=== PATIENT | female | born 1980 | race Caucasian/White ===

== ENCOUNTER → 2019-08-14 | Outpatient (CLI) | payer OTHER ==
--- NOTE | 2019-08-14 14:17 | US ---
EXAMINATION TYPE: Transabdominal DATE OF EXAM: 08/14/2019 1:01 PM COMPARISON: NONE CLINICAL HISTORY: O46.91 first trimester bleeding. bleeding. EXAM PERFORMED: Transvaginal (TV) and Transabdominal (TA) EXAM MEASUREMENTS: GESTATIONAL AGE / DATING Physician Established: (7 weeks/6 days) EDC: 03/26/2020 Dates by LMP: (7 weeks/6 days) EDC: 03/26/2020 Dates by First Scan: No previous this is first scan Dates by Current Scan for: No IUP seen at this time MATERNAL ANATOMY Uterus: 15.6 x 5.9 x 9.0 cm Right Ovary: Obscured by bowel gas Left Ovary: Obscured by bowel gas Post CDS / Adnexa: wnl Presence of free fluid: no Presence of corpus luteal cyst: no Presence of subchorionic bleed: no GESTATION / SURVEY IUP: No IUP seen at this time Beta HcG (if available): Not available at this time IMPRESSION: No current sonographic evidence of intrauterine however the endometrium is thickened, which may represent a decidual reaction of early . Given no endometrial fluid collection ectopic or spontaneous possibilities at this time correlate with serum serial beta hCGs an d follow-up pelvic ultrasound in 7-10 days.
== END | disposition home or self-care (01) ==
LOC: RADUSWWP 12:40
PROVIDERS: ATTEND Obstetrics & Gynecology
DX: O46.91 Antepartum hemorrhage, unspecified, first trimester (principal)
CPT/HCPCS: 76801

== ENCOUNTER → 2019-08-20 | Outpatient (CLI) | payer OTHER | LOC: LABWHC1 15:38 | PROVIDERS: ATTEND Obstetrics & Gynecology | DX: O03.9 Complete or unspecified spontaneous abortion without complication (principal) | CPT/HCPCS: 36415; 84702 ==

== ENCOUNTER → 2019-08-27 | Outpatient (CLI) | payer OTHER | LOC: LABWHC1 10:05 | PROVIDERS: ATTEND Obstetrics & Gynecology | DX: O03.9 Complete or unspecified spontaneous abortion without complication (principal) | CPT/HCPCS: 36415; 84702 ==

== ENCOUNTER → 2020-12-03 | Outpatient (CLI) | payer OTHER ==
--- NOTE | 2020-12-04 10:09 | MM ---
Reason for exam: screening (asymptomatic). Baseline mammogram. Physical Findings: Nurse did not find any significant physical abnormalities on exam. MG Screening Mammo w CAD Bilateral CC and MLO view(s) were taken. There are scattered fibroglandular densities. Lateral posterior left asymmetric density does not persist on left CC [employer] view. Large focal asymmetry subareolar right breast with associated calcifications. Further magnification views recommended. Intramammary node lateral right breast. These results were verbally communicated with the patient and result sheet given to the patient on 12/03/20. ASSESSMENT: Incomplete: need additional imaging evaluation, BI-RAD 0 RECOMMENDATION: Special view mammogram of the right breast. (magnification)
--- NOTE | 2020-12-04 10:10 | MM ---
Reason for exam: additional evaluation requested from abnormal screening. Physical Findings: Breast exam preformed at baseline screening. MG Work Up Mamm w CAD RT CC with magnification, ML with magnification, and ML view(s) were taken of the right breast. There are scattered fibroglandular densities. Global asymmetry with extensive associated heterogeneous calcifications persist. These results were verbally communicated with the patient and result sheet given to the patient on 12/03/20. ASSESSMENT: Incomplete: need additional imaging evaluation, BI-RAD 0 RECOMMENDATION: Ultrasound of the right breast. (subareolar and periareaolar)
--- NOTE | 2020-12-04 10:13 | USB ---
Reason for exam: additional evaluation requested from abnormal screening. US Breast Workup Limited RT Right limited breast ultrasound including focal area of concern, retroareolar and axilla demonstrates a 0.7 x 0.3 x 0.6cm oval, cystic cluster at 3 o'clock and a 0.8 x 1.3 x 0.7cm lymph node at the axilla. Subareolar and periareolar scanned. These results were verbally communicated with the patient and result sheet given to the patient on 12/03/20. ASSESSMENT: Suspicious, BI-RAD 4 RECOMMENDATION: Stereotactic core biopsy of the right breast. (subareolar calcifications) Called Dr. Moise's office with mammographic findings and has scheduled an appointment for the patient for 01/15/21 at 10:[address] Robbins. Biopsy scheduled for 01/16/21 at 8:00. PRELIMINARY REPORT CALLED AND FAXED TO DR. ROBBINS ON 12/04/20.
== END | disposition home or self-care (01) ==
LOC: RADMAMWWP 10:04
PROVIDERS: ATTEND Family Medicine
DX: Z12.31 Encounter for screening mammogram for malignant neoplasm of breast (principal); R92.8 Other abnormal and inconclusive findings on diagnostic imaging of breast
CPT/HCPCS: 77065; 77067

== ENCOUNTER → 2021-02-06 | Outpatient (CLI) | payer OTHER ==
[2021-02-06 15:05] VITALS: BP 142/103; PULSE 76; RESP 18; TEMP 98.5
--- NOTE | 2021-02-06 15:14 | P.GSHP ---
History of Present Illness H&P Date: 02/06/21 Chief Complaint: abnormal right breast mammogram Paige is a 41 year old white female seen in consultation for Dr. Moise regarding a right breast mammographic abnormality. She had a baseline mammogram done on 12-03-20, that showed an area of a focal asymmetry in the right breast with calcifications for which additional views were recommended. Additional views of the right breast revealed global asymmetry with extensive heterogeneous calcifications present for which an ultrasound was recommended. The ultrasound revealed a 0.8 x 1.3 cm lymph node in the axilla this was felt to be suspicious BIRADS 4 and stereotactic core biopsy of the right breast subareolar ca lcifications were recommended. Patient did not feel any lumps masses or nodules of concern in her breast. She is not complaining of any nipple discharge or skin changes. She is has not had any recent trauma or infection in the breast. She's never had any surgery in the breast. Caffeine: energy drink/day nicotine: none chocolate: occasional Family history: Negative Hormonal History: menarche: 13 , M1, breast fed: yes, age at first : 24 periods regular; LMP: 1 month ago BCP: < 1 year hormone: none Surgical History: gallbladder Medical history: none Social history: Nicotine: Negative Alcohol: Occasional Drugs: Negative - Constitutional Constitutional: Denies chills, Denies fever - EENT Eyes: denies blurred vision, denies pain Ears: deny: decreased hearing, tinnitus Ears, nose, mouth and throat: Denies headache, Denies sore throat - Breasts Breasts: bilateral: as per HPI - Cardiovascular Cardiovascular: Denies chest pain, Denies shortness of breath - Respiratory Respiratory: Denies cough, Denies 7 - Gastrointestinal Gastrointestinal: Denies abdominal pain, Denies diarrhea, Denies nausea, Denies vomiting - Genitourinary (Female) Genitourinary: Denies dysuria, Denies hematuria - Menstruation Menstruation: Reports period normal - Musculoskeletal Musculoskeletal: Denies myalgias - Integumentary Integumentary: Denies pruritus, Denies rash - Neurological Neurological: Denies numbness, Denies weakness - Psychiatric Psychiatric: Reports anxiety, Denies depression - Endocrine Endocrine: Denies fatigue, Denies weight change - Hematologic/Lymphatic Comment: none - Allergic/Immunologic Allergic/Immunologic: Reports as per HPI Medications and Allergies Home Medications Medication Instructions Recorded Confirmed Type Escitalopram [Lexapro] 10 mg PO DAILY 02/03/21 02/03/21 History Allergies Allergy/AdvReac Type Severity Reaction Status Date / Time No Known Allergies Allergy Verified 02/03/21 15:17 Surgical - Exam BMI 47.3 - General no distress - Eyes normal ocular movement - ENT normal pinna, normal mucosa - Neck no masses, trachea midline - Respiratory normal expansion, normal respiratory effort - Cardiovascular Rhythm: regular Heart Sounds: normal: S1, S2 - Abdomen Abdomen: soft - Integumentary normal turgor - Neurologic no disoriented, no combative - Musculoskeletal normal gait, normal posture - Psychiatric oriented to time, oriented to person, oriented to place, speech is normal, memory intact Breast Exam: BRA: 42F inspection: Bilateral grade 3 ptosis palpation: Right breast: Multiple positional exam fibrocystic changes no dominant masses or nodules of concern, particularly attention in the area of radiographic abnormality does not show any palpable mass or abnormality Right axilla: No axillary adenopathy of concern Left breast: Multi-positional exam fibrocystic changes, no dominant masses or nodules of concern Left axilla: No adenopathy of concern Results Mammogram independently reviewed with Dr. Amador Assessment and Plan Assessment: Impression: 1. Baseline mammogram revealing area of concern in the right breast 2. Fibrocystic breast changes 3. Macromastia 4. Back pain associated with size of breast 5. Shoulder notching Plan: 1. Stereotactic core biopsy right breast further recommendation to follow Cc: Erin Chanel
== END ==
LOC: WWCWWP 14:55
PROVIDERS: ATTEND Surgery
DX: N60.12 Diffuse cystic mastopathy of left breast (principal); N60.11 Diffuse cystic mastopathy of right breast; N62 Hypertrophy of breast; M54.9 Dorsalgia, unspecified; M89.8X1 Other specified disorders of bone, shoulder

== ENCOUNTER → 2021-02-12 | Day surgery (SDC) | payer OTHER ==
[2021-02-12 07:09] VITALS: RESP 16
[2021-02-12 09:35] VITALS: BP 113/73; PULSE 73; TEMP 98.1
--- NOTE | 2021-02-12 11:40 | P.PCN ---
Date of Procedure: 02/12/21 Preoperative Diagnosis: Mammographic abnormality right breast/Subareolar area Postoperative Diagnosis: Same Procedure(s) Performed: Stereotactic core biopsy right breast 2 sites Anesthesia: local Surgeon: Chelsi Robbins Pathology: other (Breast tissue 2 sites) Condition: stable Disposition: same day Indications for Procedure: Mammographic abnormality microcalcifications in subareolar region Operative Findings: Microcalcifications noted in both biopsy specimens Description of Procedure: The patient is a 41-year-old white female who was noted to have a radiographic abnormality in her right breast in the subareolar region. She was recommended to undergo a sterile tactic core biopsy. She was brought to the stereotactic core biopsy room and positioned on the lo-rad table. A elementary school reading teacher film was obtained. The area of concern was identified. A medial to lateral approach was utilized. The area of concern was targeted. Betadine was used to anesthetize the area of concern. 20 mL of 1% lidocaine was used to anesthetize the area of con cern. Needle was driven to the correct coordinates. Post-fire film was obtained. The needle was noted to be in the correct location. Multiple core biopsies were obtained, 12. Then using a 19-gauge vacuum-assisted core rotating biopsy needle. Radiograph of the specimen did reveal microcalcifications in the specimen. A secure ese top hat clip was placed. This was in the subareolar region. A second area was then targeted. This was slightly medial to the first area. A elementary school reading teacher film was performed. The lesion was identified. The lesion was targeted. A 9-gauge vacuum-assisted core Rotating biopsy needle was utilized. A prefire film identified the needle in the correct location. The needle was fired. A postoperative film revealed the needle to be in the correct location. 12 biopsy specimens were obtained. Radiograph of the specimen trivial calcification the specimens. A tri marked bowtie marker was placed. The patient tolerated the procedure in stable condition. The specimens were sent to pathology. The patient will follow with Dr. Cordoba in 1 week.
--- NOTE | 2021-02-16 09:27 | MM ---
EXAMINATION TYPE: MG stereo VAD BX RT DATE OF EXAM: 02/12/2021 COMPARISON: 12/03/2020 CLINICAL HISTORY: Subareolar calcifications for which stereotactic biopsy of the right breast was recommended. TECHNIQUE: Stereotactic guided core biopsy of right breast. FINDINGS: The procedure of stereotactic guided core biopsy was explained to the patient. Benefits, alternatives, and risks were discussed. An informed consent was then obtained. The shortness pathway for biopsy was chosen. I performed the localization, then surgeon, Dr. Robbins performed the remainder of the procedure. A vacuum assisted biopsy gun was used to obtain multiple core samples. The patient tolerated the procedure well without any immediate complication. The patient was kept in the radiology department for short stay after the procedure and then discharged home in stable condition. Targeted calcifications are identified in specimen mammogram. Post biopsy mammogram shows the clip to appear in satisfactory position relative to the targeted area of concern on the preprocedure images. IMPRESSION: SUCCESSFUL, UNCOMPLICATED STEREOTACTIC GUIDED CORE BIOPSY OF AREA OF CONCERN IN THE RIGHT BREAST, FULL PATHOLOGY RESULTS TO FOLLOW. Pathology Results: Benign A. RIGHT BREAST RETROAREOLAR, STEREOTACTIC CORE BIOPSY: Fibrocystic changes including cysts, fibrosis, adenosis, apocrine metaplasia, columnar cell change, and mild usual type ductal hyperplasia. B. RIGHT BREAST MEDIAL, STEREOTACTIC CORE BIOPSY: Fibrocystic changes including cysts with intraluminal calcifications, apocrine metaplasia, fibrosis and columnar cell change. Focal fat necrosis. Recommendation Follow up mammogram of the right breast in 6 months. LUDY
--- NOTE | 2021-02-16 11:44 | MM ---
MG Stereo VAD BX Addl RT Radiologist: Cirilo Suazo Surgeon: Sunitha Robbins M.D. EXAMINATION TYPE: MG stereo VAD BX RT DATE OF EXAM: 02/12/2021 COMPARISON: 12/03/2020 CLINICAL HISTORY: Subareolar calcifications for which stereotactic biopsy of the right breast was recommended. TECHNIQUE: Stereotactic guided core biopsy of right breast. FINDINGS: The procedure of stereotactic guided core biopsy was explained to the patient. Benefits, alternatives, and risks were discussed. An informed consent was then obtained. The shortness pathway for biopsy was chosen. I performed the localization, then surgeon, Dr. Robbins performed the remainder of the procedure. A vacuum assisted biopsy gun was used to obtain multiple core samples. The patient tolerated the procedure well without any immediate complication. The patient was kept in the radiology department for short stay after the procedure and then discharged home in stable condition. Targeted calcifications are identified in specimen mammogram. Post biopsy mammogram shows the clip to appear in satisfactory position relative to the targeted area of concern on the preprocedure images. IMPRESSION: SUCCESSFUL, UNCOMPLICATED STEREOTACTIC GUIDED CORE BIOPSY OF AREA OF CONCERN IN THE RIGHT BREAST, FULL PATHOLOGY RESULTS TO FOLLOW. Pathology Results: Benign A. RIGHT BREAST RETROAREOLAR, STEREOTACTIC CORE BIOPSY: Fibrocystic changes including cysts, fibrosis, adenosis, apocrine metaplasia, columnar cell change, and mild usual type ductal hyperplasia. B. RIGHT BREAST MEDIAL, STEREOTACTIC CORE BIOPSY: Fibrocystic changes including cysts with intraluminal calcifications, apocrine metaplasia, fibrosis and columnar cell change. Focal fat necrosis. RECOMMENDATION: Follow-up diagnostic mammogram of the right breast in 6 months. LUDY
== END ==
LOC: RADMAMWWP 06:57
PROVIDERS: ATTEND Surgery
DX: N60.11 Diffuse cystic mastopathy of right breast (principal); N60.81 Other benign mammary dysplasias of right breast; R92.8 Other abnormal and inconclusive findings on diagnostic imaging of breast; N64.1 Fat necrosis of breast; N62 Hypertrophy of breast
CPT/HCPCS: 88305; 19081; 19082; A4648; J2001

== ENCOUNTER → 2021-02-19 | Outpatient (CLI) | payer OTHER ==
[2021-02-19 13:53] VITALS: BP 138/88; PULSE 72; RESP 18; TEMP 98
--- NOTE | 2021-02-19 14:12 | P.PN ---
Subjective Progress Note Date: 02/19/21 Principal diagnosis: Fibrocystic breast changes/status post stereo biopsy right breast Paige is a 41 -year-old white female status post stereotactic core biopsy of 2 areas of concern in the right breast [place] [id number]. Pathology of the right breast retroareolar area revealed fibrocystic changes including cysts, fibrosis, adenosis, apocrine metaplasia, columnar cell change and mild usual type ductal hyperplasia. The second area right breast medial revealed fibrocystic changes including cyst with intraluminal calcifications, apocrine metaplasia, fibrosis and columnar cell change. Focal fat necrosis was also noted. The area was reviewed by Dr. Suazo and felt to be benign concordant. The recommendation was repeat right breast mammogram in 6 months. She complains of some tenderness at the site which are improving. Objective - Vital Signs Vital signs: Vital Signs Temp 98.0 F 02/19/21 13:50 Pulse 72 02/19/21 13:50 Resp 18 02/19/21 13:50 BP 138/88 02/19/21 13:50 Pulse Ox 100 02/19/21 13:50 Intake & Output 02/18/21 02/19/21 02/19/21 18:59 06:59 18:59 Weight 117.934 kg - Constitutional General appearance: Present: cooperative - EENT Eyes: Present: EOMI ENT: Present: hearing grossly normal - Neck Neck: Present: normal ROM - Respiratory Respiratory: bilateral: CTA - Cardiovascular Rhythm: regular Heart sounds: normal: S1, S2 - Integumentary Integumentary Comment(s): Ecchymosis at biopsy site, no evidence of hematoma or infection Assessment and Plan Assessment: Patient: 1. Fibrocystic changes right breast stereotactic core biopsy 2 sites 2. Ecchymosis at biopsy site resolving Plan: 1. Repeat right breast mammogram in 6 months with position exam at that time 2. Patient should follow up sooner if any questions or concerns Cc: Dr. Moise Encounter 15 minutes
== END ==
LOC: WWCWWP 13:44
PROVIDERS: ATTEND Surgery
DX: N60.11 Diffuse cystic mastopathy of right breast (principal)

== ENCOUNTER → 2021-08-17 | Outpatient (CLI) | payer OTHER ==
--- NOTE | 2021-08-17 14:25 | MM ---
Reason for exam: follow-up at short interval from prior study. Last mammogram was performed 8 months ago. History: Benign MG stereo VAD BX addl RT of the right breast, February 12, 2021. Benign MG stereo VAD BX RT of the right breast, February 12, 2021. Physical Findings: Nurse did not find any significant physical abnormalities on exam. MG 3D Diag Mammo W/Cad RT CC and MLO view(s) were taken of the right breast. Prior study comparison: December 03, 2020, right breast MG work up mamm w CAD RT. December 03, 2020, bilateral MG screening mammo w CAD. There are scattered fibroglandular densities. Previous mammotome biopsy in the right breast. There is chronic nodularity in the right breast compatible with intrammary nodes. Regional calcifications anterior right breast. No significant new findings when compared with previous films. These results were verbally communicated with the patient and result sheet given to the patient on 08/17/21. ASSESSMENT: Benign, BI-RAD 2 RECOMMENDATION: Return to routine screening mammogram schedule for both breasts. Back on schedule for November 2021.
== END | disposition home or self-care (01) ==
LOC: RADMAMWWP 10:46
PROVIDERS: ATTEND Surgery
DX: R92.1 Mammographic calcification found on diagnostic imaging of breast (principal); R92.8 Other abnormal and inconclusive findings on diagnostic imaging of breast
CPT/HCPCS: 77065; G0279; 77061

== ENCOUNTER → 2021-08-27 | Outpatient (CLI) | payer OTHER ==
[2021-08-27 08:49] VITALS: BP 130/80; PULSE 76; RESP 18; TEMP 98.3
--- NOTE | 2021-08-27 09:20 | P.PN ---
Subjective Progress Note Date: 08/27/21 Principal diagnosis: Fibrocystic breast changes Paige is a 41 year old white female seen in consultation for Dr. Moise regarding a right breast mammographic abnormality. She had a baseline mammogram done on 12-03-20, that showed an area of a focal asymmetry in the right breast with calcifications for which additional views were recommended. Additional views of the right breast revealed global asymmetry with extensive heterogeneous calcifications present for which an ultrasound was recommended. The ultrasound revealed a 0.8 x 1.3 cm lymph node in the axilla this was felt to be suspicious BIRADS 4 and stereotactic core biopsy of the right breast subareolar calcificati ons were recommended. Patient did not feel any lumps masses or nodules of concern in her breast. She underwent a [place] breast [place] [id number]. Pathology revealed fibrocystic changes including cyst/fibrosis/adenomyosis. Intraluminal calcifications were noted in the specimen she also had some focal fat necrosis. The patient underwent a repeat right breast mammogram on [id number] this was felt to be benign BIRADS 2. At this time the patient is not complaining of any new lumps masses or nodules of concern in either breast. Caffeine: energy drink/day nicotine: none chocolate: occasional Family history: Negative Hormonal History: menarche: 13 , M1, breast fed: yes, age at first : 24 periods regular; LMP: 1 month ago BCP: < 1 year hormone: none Surgical History: gallbladder Medical history: none Social history: Nicotine: Negative Alcohol: Occasional Drugs: Negative - Constitutional Constitutional: Denies chills, Denies fever - EENT Eyes: denies blurred vision, denies pain Ears: deny: decreased hearing, tinnitus Ears, nose, mouth and throat: Denies headache, Denies sore throat - Breasts Breasts: bilateral: as per HPI - Cardiovascular Cardiovascular: Denies chest pain, Denies shortness of breath - Respiratory Respiratory: Denies cough - Gastrointestinal Gastrointestinal: Denies abdominal pain, Denies diarrhea, Denies nausea, Denies vomiting - Genitourinary (Female) Genitourinary: Denies dysuria, Denies hematuria - Menstruation Menstruation: Reports period normal - Musculoskeletal Musculoskeletal: Denies myalgias - Integumentary Integumentary: Denies pruritus, Denies rash - Neurological Neurological: Denies numbness, Denies weakness - Psychiatric Psychiatric: Reports anxiety, Denies depression - Endocrine Endocrine: Denies fatigue, Denies weight change - Hematologic/Lymphatic Comment: none - Allergic/Immunologic Allergic/Immunologic: Reports as per HPI Objective - Vital Signs Vital signs: Vital Signs Temp 98.3 F 08/27/21 08:47 Pulse 76 08/27/21 08:47 Resp 18 08/27/21 08:47 BP 130/80 08/27/21 08:47 Pulse Ox 99 08/27/21 08:47 Intake & Output 08/26/21 08/27/21 08/27/21 18:59 06:59 18:59 Weight 120.202 kg - Constitutional General appearance: Present: cooperative - EENT Eyes: Present: EOMI ENT: Present: hearing grossly normal - Neck Neck: Present: normal ROM - Respiratory Respiratory: bilateral: CTA - Cardiovascular Rhythm: regular Heart sounds: normal: S1, S2 - Gastrointestinal General gastrointestinal: Present: soft - Integumentary Integumentary: Present: normal turgor - Musculoskeletal Musculoskeletal: Present: gait normal - Psychiatric Psychiatric: Present: A&O x's 3, appropriate affect, intact judgment & insight - Additional findings Additional findings: Breast Exam: BRA: 42F inspection: Grade 3 ptosis bilaterally Palpation: Right breast: Multiple positional exam fibrocystic changes no dominant masses or nodules of concern Right axilla: No adenopathy of concern Left breast: Multiple positional exam fibrocystic changes no dominant masses or nodules of concern Left axilla: No adenopathy of concern Assessment and Plan Assessment: Impression: Bilateral fibrocystic breast changes Plan: Bilateral mammogram in 6 months with physician exam at that time Secondary to macromastia the patient is going to see a plastic surgeon related to back pain CC: Dr. Moise
== END ==
LOC: WWCWWP 08:36
PROVIDERS: ATTEND Surgery
DX: N60.11 Diffuse cystic mastopathy of right breast (principal); N60.12 Diffuse cystic mastopathy of left breast

== ENCOUNTER → 2021-12-07 | Outpatient (CLI) | payer OTHER ==
--- NOTE | 2021-12-07 14:44 | MM ---
Reason for exam: additional evaluation requested from prior study. Last mammogram was performed 4 months ago. History: Benign MG stereo VAD BX addl RT of the right breast, February 12, 2021. Benign MG stereo VAD BX RT of the right breast, February 12, 2021. Physical Findings: A clinical breast exam by your physician is recommended on an annual basis and results should be correlated with mammographic findings. MG 3D Diag Mammo W/Cad RAD Bilateral CC and MLO view(s) were taken. Prior study comparison: August 17, 2021, right breast MG 3d diag mammo w/cad RT. December 03, 2020, right breast MG work up mamm w CAD RT. There are scattered fibroglandular densities. Stable calcifications right breast, sampled previously. Previous mammotome biopsy in the right breast. No significant new findings when compared with previous films. These results were verbally communicated with the patient and result sheet given to the patient on 12/07/21. ASSESSMENT: Benign, BI-RAD 2 RECOMMENDATION: Routine screening mammogram of both breasts in 1 year.
== END | disposition home or self-care (01) ==
LOC: RADMAMWWP 14:07
PROVIDERS: ATTEND Surgery
DX: R92.1 Mammographic calcification found on diagnostic imaging of breast (principal)
CPT/HCPCS: 77066; G0279; 77062

== ENCOUNTER → 2022-12-09 | Outpatient (CLI) | payer OTHER ==
--- NOTE | 2022-12-09 12:16 | MM ---
Reason for Exam: Screening (asymptomatic). Last screening mammogram was performed 12 month(s) ago. Patient History: Menarche at age 12. First Full-Term at age 24. Patient has history of breast feeding. 02/12/2021, Benign Core Biopsy on the right side. 02/12/2021, Benign Core Biopsy on the right side. Last menstrual period: 11/25/2022 Risk Values: Bianka 5 year model risk: 1.6%. NCI Lifetime model risk: 14.1%. Prior Study Comparison: 12/03/2020 Right Diagnostic Mammogram, [facility]. 08/17/2021 Right Diagnostic Mammogram, [facility]. 12/07/2021 Bilateral Diagnostic Mammogram, [facility]. Tissue Density: The breast tissue is heterogeneously dense. This may lower the sensitivity of mammography. Findings: Analyzed By CAD. * There are 2 biopsy clips within the right breast which are more medial compared to retroareolar calcifications. Calcification seem increased from prior measuring up to 4.6 x 2.5 cm. Approximately 2 cm from the nipple. It * Asymmetry on CC view measuring 15 mm. At anterior depth just posterior to the nipple. There is no suspicious group of microcalcifications or new suspicious mass in either breast. Overall Assessment: Incomplete: need additional imaging evaluation, BI-RAD 0 Management: Diagnostic Mammogram of the right breast. Diagnostic Breast Ultrasound of the right breast. There are 2 biopsy clips within the right breast area of abnormal calcifications are seen scattered throughout the anterior breast measuring up to 4.6 x 2.5 cm. Approximately 2 cm from the nipple. A clinical breast exam by your physician is recommended on an annual basis and results should be correlated with mammographic findings. [facility] will attempt to contact patient to return for supplemental views and ultrasound if indicated. Electronically signed and approved by: Isidro Sim DO
== END | disposition home or self-care (01) ==
LOC: RADMAMWWP 08:06
PROVIDERS: ATTEND Surgery
DX: Z12.31 Encounter for screening mammogram for malignant neoplasm of breast (principal); Z98.890 Other specified postprocedural states
CPT/HCPCS: 77063; 77067

== ENCOUNTER → 2022-12-14 | Outpatient (CLI) | payer OTHER ==
--- NOTE | 2022-12-14 09:20 | MM ---
Reason for Exam: Additional evaluation requested from abnormal screening. Last screening mammogram was performed less than 1 month ago. Patient History: Menarche at age 12. First Full-Term at age 24. Premenopausal. Patient has history of breast feeding. 02/12/2021, Benign Core Biopsy on the right side. 02/12/2021, Benign Core Biopsy on the right side. Last menstrual period: 11/25/2022 Risk Values: Bianka 5 year model risk: 1.6%. NCI Lifetime model risk: 14.1%. Tissue Density: Right: The breast tissue is heterogeneously dense. This may lower the sensitivity of mammography. Findings: Analyzed By CAD. There is ill-defined increased density in the subareolar right breast. This is less focal and less defined than the prior exam. 2 core markers are present. There are multiple punctate calcifications within the anterior and subareolar right breast which appear to be increasing over the interval. Ultrasound through this region is negative. Bilingual Sales Consultant sample of increased calcifications is recommended. Overall Assessment: Suspicious, BI-RAD 4 Management: Stereotactic Core Biopsy of the right breast. A clinical breast exam by your physician is recommended on an annual basis and results should be correlated with mammographic findings. This exam should not preclude additional follow-up of suspicious palpable abnormalities. Results were given to the patient verbally at the time of exam. Electronically signed and approved by: Nasim Webster D.O. Radiologis
--- NOTE | 2022-12-14 09:20 | USB ---
Reason for Exam: Additional evaluation requested from abnormal screening. Patient History: Menarche at age 12. First Full-Term at age 24. Premenopausal. Patient has history of breast feeding. 02/12/2021, Benign Core Biopsy on the right side. 02/12/2021, Benign Core Biopsy on the right side. Risk Values: Bianka 5 year model risk: 1.6%. NCI Lifetime model risk: 14.1%. Technique: Method: Targeted. Prior Study Comparison: 08/17/2021 Right Diagnostic Mammogram, [facility]. 12/07/2021 Bilateral Diagnostic Mammogram, [facility]. 12/09/2022 Bilateral MG 3D screening mammo w/cad, [facility]. Findings: The periareolar of the right breast and the retroareolar of the right breast were scanned. No solid or cystic masses are identified. No suspicious shadowing is evident. Overall Assessment: Negative, BI-RAD 1 Management: Stereotactic Core Biopsy of the right breast. A clinical breast exam by your physician is recommended on an annual basis and results should be correlated with mammographic findings. This exam should not preclude additional follow-up of suspicious palpable abnormalities. Results were given to the patient verbally at the time of exam. Electronically signed and approved by: Nasim Webster D.O. Radiologis
== END | disposition home or self-care (01) ==
LOC: RADMAMWWP 07:59
PROVIDERS: ATTEND Surgery
DX: R92.8 Other abnormal and inconclusive findings on diagnostic imaging of breast (principal); Z98.890 Other specified postprocedural states
CPT/HCPCS: 77065; 76642; G0279; 77061

== ENCOUNTER → 2022-12-24 | Day surgery (SDC) | payer OTHER ==
[2022-12-24 07:18] VITALS: RESP 16
[2022-12-24 08:21] VITALS: BP 109/76; PULSE 77; TEMP 98.2
--- NOTE | 2022-12-24 09:12 | P.OP ---
Date of Procedure: 12/24/22 Preoperative Diagnosis: Microcalcifications of concern right breast Postoperative Diagnosis: Same Procedure(s) Performed: Stereotactic core biopsy right breast Anesthesia: local Surgeon: Chelsi Robbins Condition: other (Radiographic specimen reveals microcalcifications of concern right breast) Disposition: same day Indications for Procedure: Increasing microcalcifications medial aspect right breast Operative Findings: Radiographic specimen reveals microcalcifications of concern Description of Procedure: The patient is a 42-year-old white female who was noted to have increasing microcalcifications in the anterior and subareolar aspect of the right breast. Stereotactic core biopsy was recommended. Risks and benefits of the procedure were discussed with the patient. She understood and wished to proceed. The patient was brought to the stereotactic core biopsy room. She was positioned prone on the Lorad table. A medial to lateral approach was utilized. A buckram sewer film was obtained. The area of concern was identified. The area was targeted. The breast was prepped using Betadine. 20 mL of 1% lidocaine were used to anesthetize the area of concern. A 9-gauge vacuum-assisted core rotating biopsy needle was driven to the correct coordinates. A prefire film was obtained. The needle was noted to be in the correct location. Core biopsy specimens were obtained. Radiograph of the specimen revealed the prior biopsy clip was in the specimen but only a small amount of calcification. Therefore additional samples were obtained after the needle had been advanced. Additional Microcalcifications were noted to be in the second specimen. Was felt the area had been adequately sampled. A top-hat clip was placed. Again it should be noted that in the original marking clip in the area was removed with the sampling. The patient tolerated the procedure in stable condition. The patient will follow-up with Dr. Cordoba next week. The specimen was sent to pathology.
--- NOTE | 2022-12-24 14:08 | MM ---
Date of Procedure: 12/24/22 Preoperative Diagnosis: Microcalcifications of concern right breast Postoperative Diagnosis: Same Procedure(s) Performed: Stereotactic core biopsy right breast Anesthesia: local Surgeon: Chelsi Robbins Condition: other (Radiographic specimen reveals microcalcifications of concern right breast) Disposition: same day Indications for Procedure: Increasing microcalcifications medial aspect right breast Operative Findings: Radiographic specimen reveals microcalcifications of concern Description of Procedure: The patient is a 42-year-old white female who was noted to have increasing microcalcifications in the anterior and subareolar aspect of the right breast. Stereotactic core biopsy was recommended. Risks and benefits of the procedure were discussed with the patient. She understood and wished to proceed. The patient was brought to the stereotactic core biopsy room. She was positioned prone on the Lorad table. A medial to lateral approach was utilized. A communications tech film was obtained. The area of concern was identified. The area was targeted. The breast was prepped using Betadine. 20 mL of 1% lidocaine were used to anesthetize the area of concern. A 9-gauge vacuum-assisted core rotating biopsy needle was driven to the correct coordinates. A prefire film was obtained. The needle was noted to be in the correct location. Core biopsy specimens were obtained. Radiograph of the specimen revealed the prior biopsy clip was in the specimen but only a small amount of calcification. Therefore additional samples were obtained after the needle had been advanced. Additional Microcalcifications were noted to be in the second specimen. Was felt the area had been adequately sampled. A top-hat clip was placed. Again it should be noted that the original marking clip in the area was removed with the sampling. The patient tolerated the procedure in stable condition. The patient will follow-up with Dr. Cordoba next week. The specimen was sent to pathology. [facility]
== END ==
LOC: RADMAMWWP 07:00
PROVIDERS: ATTEND Surgery
DX: N60.81 Other benign mammary dysplasias of right breast (principal); R92.1 Mammographic calcification found on diagnostic imaging of breast
CPT/HCPCS: 88305; 19081; A4648; J2001

== ENCOUNTER → 2022-12-31 | Outpatient (CLI) | payer OTHER ==
--- NOTE | 2022-12-31 13:34 | P.PN ---
Subjective Progress Note Date: 12/31/22 Principal diagnosis: fibrocystic breast disease Paige is a 42 year old white female status post stero biopsy of an are of microcalcifications in the right bresat on 12-24-22. Her pathology was benign. The area is about 5 cm and after review with radiology it was recommended that a repeat mammogram be done in three months. I discussed this with the patient and her . They understand that the area is several centimeters in size and that the biopsy specimen could have sampling air. We are going to follow very closely. Objective - Constitutional General appearance: Present: cooperative - EENT Eyes: Present: EOMI ENT: Present: hearing grossly normal - Neck Neck: Present: normal ROM - Respiratory Respiratory: bilateral: CTA - Cardiovascular Rhythm: regular Heart sounds: normal: S1, S2 - Integumentary Integumentary Comment(s): Biopsy site right breast clean and dry No evidence of infection or hematoma Assessment and Plan Assessment: Impression: Right breast stereotactic core biopsy fibrocystic changes, including cysts, fibrosis, apocrine metaplasia, columnar cell change, and calcifications. Focal scar with hemosiderin laden histiocytes noted. Plan: Repeat right breast mammogram in 3 months with physician exam at that time If patient notes any changes sooner we will see her sooner CC: Dr. Moise
[2022-12-31 13:43] VITALS: BP 142/85; PULSE 74; RESP 18; TEMP 97.9
== END ==
LOC: WWCWWP 12:39
PROVIDERS: ATTEND Surgery
DX: Z12.31 Encounter for screening mammogram for malignant neoplasm of breast (principal); N63.10 Unspecified lump in the right breast, unspecified quadrant; M61.9 Calcification and ossification of muscle, unspecified

== ENCOUNTER → 2023-03-09 | Outpatient (CLI) | payer OTHER | LOC: WWCWWP 10:56 | PROVIDERS: ATTEND Surgery | DX: Z53.9 Procedure and treatment not carried out, unspecified reason (principal) ==

== ENCOUNTER → 2023-03-09 | Outpatient (CLI) | payer OTHER ==
--- NOTE | 2023-03-09 11:40 | P.PN ---
Subjective Progress Note Date: 03/09/23 Principal diagnosis: fibrocystic breast disease Fibrocystic breast changes Paige is a 43-year-old white female status post posterior biopsy of an area of microcalcifications in the right breast on [id number]. Her pathology was benign. The area was approximately 5 cm and after review with radiology was recommended that a repeat mammogram be done in 3 months rather than 6 months. She has had 3 stereotactic core biopsies in the right breast all have been benign. The first 2 stereo biopsies were done at the same time in January 2021. The patient herself is not complaining of any new lumps masses or nodules of concern. Is not complaining of any new lumps masses or nodules of concern in either breast. She is not complaining of any nipple discharge or skin changes. She has not had any recent trauma or infection in the breast. Patient does have marked macromastia. She has back pain associated with this. She has shoulder notching associated with this. Would like to have reduction mammoplasty performed. Caffeine: energy drink/day nicotine: none chocolate: occasional Family history: Negative Hormonal History: menarche: 13 , M1, breast fed: yes, age at first : 24 periods regular; LMP: 1 month ago BCP: < 1 year hormone: none Surgical History: gallbladder Medical history: none Social history: Nicotine: Negative Alcohol: Occasional Drugs: Negative - Constitutional Constitutional: Denies chills, Denies fever - EENT Eyes: denies blurred vision, denies pain Ears: deny: decreased hearing, tinnitus Ears, nose, mouth and throat: Denies headache, Denies sore throat - Breasts Breasts: bilateral: as per HPI - Cardiovascular Cardiovascular: Denies chest pain, Denies shortness of breath - Respiratory Respiratory: Denies cough - Gastrointestinal Gastrointestinal: Denies abdominal pain, Denies diarrhea, Denies nausea, Denies vomiting - Genitourinary (Female) Genitourinary: Denies dysuria, Denies hematuria - Menstruation Menstruation: Reports period normal - Musculoskeletal Musculoskeletal: Denies myalgias - Integumentary Integumentary: Denies pruritus, Denies rash - Neurological Neurological: Denies numbness, Denies weakness - Psychiatric Psychiatric: Reports anxiety, Denies depression - Endocrine Endocrine: Denies fatigue, Denies weight change - Hematologic/Lymphatic Comment: none - Allergic/Immunologic Allergic/Immunologic: Reports as per HPI Objective - Constitutional General appearance: Present: cooperative - EENT Eyes: Present: EOMI ENT: Present: hearing grossly normal - Neck Neck: Present: normal ROM - Respiratory Respiratory: bilateral: CTA - Cardiovascular Heart sounds: normal: S1, S2 - Gastrointestinal General gastrointestinal: Present: soft - Integumentary Integumentary: Present: normal turgor - Musculoskeletal Musculoskeletal: Present: gait normal - Psychiatric Psychiatric: Present: A&O x's 3, appropriate affect, intact judgment & insight - Additional findings Additional findings: BRA: 44F inspection: bilateral grade 3 ptosis; bilateral shoulder notching palpation: right breast: Multiple positional exam fibrocystic changes no dominant masses or nodules of concern Right axilla: No adenopathy of concern Left breast: Multiple positional exam no dominant masses or nodules of concern Left axilla: No adenopathy of concern Bilateral shoulder notching Breast hang close to her waist secondary to the pendulous nature when she stands or sits up Assessment and Plan Assessment: Impression: Macromastia Shoulder notching Back pain Fibrocystic breast changes Stereotactic [place] [address] benign, however secondary to the large area of microcalcifications repeat mammogram in 3 months was recommended this is going to be performed today Plan: I have discussed the option of breast reduction with the patient she would like this to be done she was given the option of seeing a plastic surgeon and at this time has declined this. She would like to have the procedure done here for possible Will follow up after mammogram is performed CC: Dr. Moise
--- NOTE | 2023-03-09 12:20 | MM ---
Reason for Exam: Additional evaluation requested from prior study. Last screening mammogram was performed 3 month(s) ago. Patient History: Menarche at age 12. First Full-Term at age 24. Premenopausal. Patient has history of breast feeding. 12/24/2022, Benign MG stereo VAD BX RT on the right side. 02/12/2021, Benign Core Biopsy on the right side. 02/12/2021, Benign Core Biopsy on the right side. Risk Values: Bianka 5 year model risk: 1.7%. NCI Lifetime model risk: 13.9%. Prior Study Comparison: 12/07/2021 Bilateral Diagnostic Mammogram, [facility]. 12/09/2022 Bilateral MG 3D screening mammo w/cad, [facility]. 12/14/2022 Right MG 3D work up w/cad RT, [facility]. Tissue Density: Right: There are scattered fibroglandular densities. Findings: Analyzed By CAD. Pattern appears stable. There are multiple fine calcifications within the subareolar right breast. New or changing calcifications are not identified. 2 surgical core markers are present. Short-term follow-up in 3 months is recommended with magnification views over the anterior calcifications. No suspicious groups of microcalcifications, spiculated or lobular masses, architectural distortion or other secondary signs of malignancy are mammographically apparent. Overall Assessment: Probably benign, BI-RAD 3 Management: Diagnostic Mammogram of the right breast in 3 months. A negative mammogram report should not preclude additional follow up of suspicious palpable abnormalities. Patient should continue monthly self breast exam. A clinical breast exam by your physician is recommended on an annual basis and results should be correlated with mammographic findings. Electronically signed and approved by: Nasim Webster D.O. Radiologis
== END | disposition home or self-care (01) ==
LOC: RADMAMWWP 10:53
PROVIDERS: ATTEND Surgery
DX: R92.1 Mammographic calcification found on diagnostic imaging of breast (principal); R92.8 Other abnormal and inconclusive findings on diagnostic imaging of breast
CPT/HCPCS: 77065; G0279; 77061

== ENCOUNTER → 2023-06-13 | Outpatient (CLI) | payer OTHER ==
--- NOTE | 2023-06-13 10:26 | MM ---
Reason for Exam: Follow-up at short interval from prior study. Last screening mammogram was performed 6 month(s) ago. Patient History: Menarche at age 12. First Full-Term at age 24. Premenopausal. Patient has history of breast feeding. 12/24/2022, Benign MG stereo VAD BX RT on the right side. 02/12/2021, Benign Core Biopsy on the right side. 02/12/2021, Benign Core Biopsy on the right side. Last menstrual period: 05/19/2023 Risk Values: Bianka 5 year model risk: 1.7%. NCI Lifetime model risk: 13.9%. Prior Study Comparison: 12/09/2022 Bilateral MG 3D screening mammo w/cad, [facility]. 12/14/2022 Right MG 3D work up w/cad RT, [facility]. 03/09/2023 Right MG 3D diag mammo w/cad RT, [facility]. Tissue Density: Right: The breast tissue is heterogeneously dense. This may lower the sensitivity of mammography. Findings: Analyzed By CAD. Grouped consultations in the posterior nipple region of the right breast have Increased when looking back at multiple years prior's. There are 2 biopsy clips present in this region. Consider tissue sampling. Overall Assessment: Suspicious, BI-RAD 4 Management: Stereotactic Core Biopsy of the right breast. Results were given to the patient verbally at the time of exam. Patient should continue monthly self-breast exams. A clinical breast exam by your physician is recommended on an annual basis. This exam should not preclude additional follow-up of suspicious palpable abnormalities. Note on Bianka scores and lifetime risk: 1. A Bianka score greater than 3% is considered moderate risk. If this is the case, consider specialist referral to assess eligibility for a risk reducing agent. 2. If overall lifetime risk for the development of breast cancer is 20% or higher, the patient may qualify for future screening with alternating mammogram and breast MRI. Electronically signed and approved by: Isidro Sim DO
== END | disposition home or self-care (01) ==
LOC: RADMAMWWP 09:35
PROVIDERS: ATTEND Surgery
DX: R92.8 Other abnormal and inconclusive findings on diagnostic imaging of breast (principal)
CPT/HCPCS: 77065; G0279; 77061

== ENCOUNTER → 2023-06-16 | Outpatient (CLI) | payer OTHER ==
[2023-06-16 13:51] VITALS: BP 138/89; PULSE 83; RESP 17; TEMP 98.1
--- NOTE | 2023-06-16 14:05 | P.PN ---
Subjective Progress Note Date: 06/16/23 Principal diagnosis: fibrocystic breast changes Principal diagnosis: Fibrocystic breast changes Paige is a 43-year-old white female status post stero biopsy of an area of microcalcifications in the right breast on . Her pathology was benign. The area was approximately 5 cm and after review with radiology was recommended that a repeat mammogram be done in 3 months rather than 6 months. She has had 3 stereotactic core biopsies in the right breast all have been benign. The first 2 stereo biopsies were done at the same time in January 2021. The patient herself is not complaining of any new lumps masses or nodules of concern. Patient does have marked macromastia. She has back pain associated with this. She has shoulder notching associated with this. Would like to have reduction mammoplasty performed. Have reviewed in detail the patient's repeat right breast mammogram with Dr. Webster from radiology. At this time the calcifications do not appear to have changed. However to be cautious he has recommended repeating a mammogram of that side in 3 months with magnification views of that site. We have also discussed reduction mammoplasty. His recommendation is that we would wait until the additional films be done in 3 months to assure stability. Patient will have repeat right breast mammogram with magnification views of the area of concern in 3 months and an appointment at that time. right breast mammogram done on 06-13-23 BIRAD 4 stero biopsy recommended Caffeine: energy drink/day nicotine: none chocolate: occasional Family history: Negative Hormonal History: menarche: 13 , M1, breast fed: yes, age at first : 24 periods regular; LMP: 1 month ago BCP: < 1 year hormone: none Surgical History: gallbladder Medical history: none Social history: Nicotine: Negative Alcohol: Occasional Drugs: Negative - Constitutional Constitutional: Denies chills, Denies fever - EENT Eyes: denies blurred vision, denies pain Ears: deny: decreased hearing, tinnitus Ears, nose, mouth and throat: Denies headache, Denies sore throat - Breasts Breasts: bilateral: as per HPI - Cardiovascular Cardiovascular: Denies chest pain, Denies shortness of breath - Respiratory Respiratory: Denies cough - Gastrointestinal Gastrointestinal: Denies abdominal pain, Denies diarrhea, Denies nausea, Denies vomiting - Genitourinary (Female) Genitourinary: Denies dysuria, Denies hematuria - Menstruation Menstruation: Reports period normal - Musculoskeletal Musculoskeletal: Denies myalgias - Integumentary Integumentary: Denies pruritus, Denies rash - Neurological Neurological: Denies numbness, Denies weakness - Psychiatric Psychiatric: Reports anxiety, Denies depression - Endocrine Endocrine: Denies fatigue, Denies weight change - Hematologic/Lymphatic Comment: none - Allergic/Immunologic Allergic/Immunologic: Reports as per HPI Objective - Vital Signs Vital signs: Vital Signs Temp 98.1 F 06/16/23 13:46 Pulse 83 06/16/23 13:46 Resp 17 06/16/23 13:46 BP 138/89 06/16/23 13:46 Pulse Ox 98 06/16/23 13:46 FiO2 Intake & Output 06/15/23 06/16/23 06/16/23 18:59 06:59 18:59 Weight 122.47 kg - Constitutional General appearance: Present: cooperative - EENT Eyes: Present: EOMI ENT: Present: hearing grossly normal - Neck Neck: Present: normal ROM - Respiratory Respiratory: bilateral: CTA - Cardiovascular Rhythm: regular Heart sounds: normal: S1, S2 - Integumentary Integumentary: Present: normal turgor - Musculoskeletal Musculoskeletal: Present: gait normal - Psychiatric Psychiatric: Present: A&O x's 3, appropriate affect, intact judgment & insight - Additional findings Additional findings: BRA: 44F inspection: bilateral grade 3 ptosis; bilateral shoulder notching palpation: right breast: Multi-positional exam fibrocystic changes no dominant masses or nodules of concern Right axilla: No adenopathy of concern Left breast: Multiple positional exam no dominant masses or nodules of concern Left axilla: No adenopathy of concern Bilateral shoulder notching Breast hang close to her waist secondary to the pendulous nature when she stands or sits up Assessment and Plan Assessment: Impression: Macromastia Shoulder notching Back pain Fibrocystic breast changes [place] [id number] benign, however secondary to the large area of microcalcifications repeat mammogram was recommended and done on 06-13-23; BIRAD 4 stero biopsy recommended Plan: I have discussed the option of breast reduction with the patient she would like this to be done she was given the option of seeing a plastic surgeon and at this time has declined this. She would like to have the procedure done here for possible At this time a stereotactic core biopsy of the right breast is being scheduled. The patient and her understand the risks and benefits and wished to proceed. Risks include but are not limited to bleeding, infection, reaction to the anesthetic. If the specimen is discordant and further tissue acquisition may be necessary. CC: Dr. Moise
== END ==
LOC: WWCWWP 13:07
PROVIDERS: ATTEND Surgery
DX: N60.11 Diffuse cystic mastopathy of right breast (principal); N62 Hypertrophy of breast; M54.9 Dorsalgia, unspecified

== ENCOUNTER → 2023-07-08 | Day surgery (SDC) | payer OTHER ==
[2023-07-08 07:43] VITALS: RESP 16
--- NOTE | 2023-07-08 08:43 | P.PCN ---
Date of Procedure: 07/08/23 Preoperative Diagnosis: Microcalcifications Of concern right breast Postoperative Diagnosis: Same Procedure(s) Performed: Right breast stereotactic core biopsy Anesthesia: local Surgeon: Chelsi Robbins Pathology: other (Breast tissue with calcifications) Condition: stable Disposition: same day Indications for Procedure: Microcalcifications of concern right breast post areolar area Operative Findings: Radiographic of specimen reveals calcifications of concern Description of Procedure: The patient is a 43-year-old white female who on a mammogram was noted to have increasing calcifications in the posterior nipple region on the right. It was considered suspicious and sampling was recommended. This was reviewed with Dr. Amador and the area of calcification to sample was chosen. The risks and benefits of the procedure were discussed with the patient and she wished to proceed. The patient was taken to the stereotactic core biopsy room. The patient was positioned in the upright stereo chair. A primary school teacher librarian film was obtained. The area of concern was identified. The area was targeted. The breast was prepped using Betadine. 20 mL of 1% lidocaine was used to anesthetize the area of concern. A 9-gauge vacuum-assisted core rotating biopsy needle was driven to the correct coordinates. A pre-fire film was obtained. The needle was noted to be in the correct location. The needle was fired. 12 core specimens were obtained. Radiograph of the specimen revealed the calcifications of concern had been sampled. A secure ese top hat clip was left. Radiograph revealed the clip to be in the correct location. The patient tolerated the procedure in stable condition. The specimen was sent to pathology. The patient will follow with Dr. Cordoba next week.
[2023-07-08 09:12] VITALS: BP 132/66; PULSE 74; TEMP 98.1
== END | disposition home or self-care (01) ==
LOC: RADMAMWWP 07:28
PROVIDERS: ATTEND Surgery
DX: N60.81 Other benign mammary dysplasias of right breast (principal)
CPT/HCPCS: 88305; 19081; A4648; J2001

== ENCOUNTER → 2023-07-15 | Outpatient (CLI) | payer OTHER ==
--- NOTE | 2023-07-15 09:26 | P.PN ---
Progress Note - Text Progress Note Date: 07/15/23 Paige is a 43 year old status post right breast stero biopsy on 07-08-23. Her pathology was benign concordant. She tolerated the procedure without difficulty. Examination: Lungs: Clear Heart: Regular rate and rhythm Biopsy site clean and dry The patient's bra size is 42 F; she would like to have reduction mammoplasty performed. Impression: Bilateral symptomatic macromastia Recent core biopsy benign concordant Plan: The plastic surgery regarding breast reduction Repeat right breast mammogram in 6 months with physician exam here at that time CC: DR. Christianson
[2023-07-15 09:35] VITALS: BP 137/84; PULSE 72; RESP 18; TEMP 98
== END ==
LOC: WWCWWP 09:13
PROVIDERS: ATTEND Surgery
DX: N62 Hypertrophy of breast (principal)

== ENCOUNTER → 2024-01-09 | Outpatient (CLI) | payer OTHER ==
--- NOTE | 2024-01-09 10:30 | MM ---
Reason for Exam: Follow-up at short interval from prior study. Last mammogram was performed 1 year(s) and 1 month(s) ago. Patient History: Menarche at age 12. First Full-Term at age 24. Premenopausal. Patient has history of breast feeding. 07/08/2023, Benign MG stereo VAD BX RT on the right side. 12/24/2022, Benign MG stereo VAD BX RT on the right side. 02/12/2021, Benign Core Biopsy on the right side. 02/12/2021, Benign Core Biopsy on the right side. Risk Values: Bianka 5 year model risk: 1.8%. NCI Lifetime model risk: 13.6%. Prior Study Comparison: 12/14/2022 Right MG 3D work up w/cad RT, [facility]. 03/09/2023 Right MG 3D diag mammo w/cad RT, [facility]. 06/13/2023 Right MG 3D diag mammo w/cad RT, [facility]. Tissue Density: Right: There are scattered areas of fibroglandular density. Findings: Analyzed By CAD. Pattern appears stable. There are multiple calcifications present. Surgical core markers are within the anterior right breast on multiple calcifications. There appear to be some developing calcifications in the upper outer right breast 9:00 middle position. These appear to be new from comparison and stereotactic core biopsy is recommended. Overall Assessment: Suspicious, BI-RAD 4 Management: Stereotactic Core Biopsy of the right breast. Surgical Consultation of the right breast. A negative mammogram report should not preclude additional follow up of suspicious palpable abnormalities. Patient should continue monthly self breast exam. A clinical breast exam by your physician is recommended on an annual basis and results should be correlated with mammographic findings. Electronically signed and approved by: Nasim Webster D.O. Radiologis
== END | disposition home or self-care (01) ==
LOC: RADMAMWWP 09:39
PROVIDERS: ATTEND Surgery
DX: R92.321 Mammographic fibroglandular density, right breast (principal)
CPT/HCPCS: 77065; G0279; 77061

== ENCOUNTER → 2024-01-13 | Day surgery (SDC) | payer OTHER ==
[2024-01-13] MEDS: ALPRAZolam 0.5 MG TAB PO PRN (07:50)
[2024-01-13 08:28] VITALS: RESP 16
--- NOTE | 2024-01-13 08:47 | MM ---
Reason for Exam: Follow-up at short interval from prior study. Last mammogram was performed 1 year(s) and 1 month(s) ago. Patient History: Menarche at age 12. First Full-Term at age 24. Premenopausal. Patient has history of breast feeding. 07/08/2023, Benign MG stereo VAD BX RT on the right side. 12/24/2022, Benign MG stereo VAD BX RT on the right side. 02/12/2021, Benign Core Biopsy on the right side. 02/12/2021, Benign Core Biopsy on the right side. Risk Values: Bianka 5 year model risk: 1.8%. NCI Lifetime model risk: 13.6%. Prior Study Comparison: 03/09/2023 Right MG 3D diag mammo w/cad RT, [facility]. 06/13/2023 Right MG 3D diag mammo w/cad RT, [facility]. 01/09/2024 Right MG 3D diag mammo w/cad RT, [facility]. Tissue Density: Left: There are scattered areas of fibroglandular density. Findings: Analyzed By CAD. Pattern is stable. Scattered benign punctate calcifications are within the left breast. No suspicious groups of microcalcifications, spiculated or lobular masses, architectural distortion or other secondary signs of malignancy are mammographically apparent. Overall Assessment: Benign, BI-RAD 2 Management: Stereotactic Core Biopsy of the right breast. A negative mammogram report should not preclude additional follow up of suspicious palpable abnormalities. Patient should continue monthly self breast exam. A clinical breast exam by your physician is recommended on an annual basis and results should be correlated with mammographic findings. Note on Bianka scores and lifetime risk: 1. A Bianka score greater than 3% is considered moderate risk. If this is the case, consider specialist referral to assess eligibility for a risk reducing agent. 2. If overall lifetime risk for the development of breast cancer is 20% or higher, the patient may qualify for future screening with alternating mammogram and breast MRI. Electronically signed and approved by: Nasim Webster D.O. Radiologis
--- NOTE | 2024-01-13 08:49 | P.PN ---
Subjective Progress Note Date: 01/13/24 Principal diagnosis: abnormal right breast mammogram Fibrocystic breast changes Paige is a 44-year-old white female status post stero biopsy of an area of microcalcifications in the right breast on . Her pathology was benign. The area was approximately 5 cm and after review with radiology was recommended that a repeat mammogram be done in 3 months rather than 6 months. She has had 3 stereotactic core biopsies in the right breast all have been benign. The first 2 stereo biopsies were done at the same time in January 2021. The patient herself is not complaining of any new lumps masses or nodules of concern. Patient does have marked macromastia. She has back pain associated with this. She has shoulder notching associated with this. Would like to have reduction mammoplasty performed. Have reviewed in detail the patient's repeat right breast mammogram with Dr. Webster from radiology. At this time the calcifications do not appear to have changed. However to be cautious he has recommended repeating a mammogram of that side in 3 months with magnification views of that site. We have also discussed reduction mammoplasty. His recommendation is that we would wait until the additional films be done in 3 months to assure stability. Patient will have repeat right breast mammogram with magnification views of the area of concern in 3 months and an appointment at that time. right breast mammogram done on 06-13-23 BIRAD 4 stero biopsy recommended Stereotactic core biopsy on 07-08-2023 of the right breast this was benign with fibrocystic changes She was recommended to have a repeat right breast mammogram in 6 months. That was repeated on 01-09-2024. This revealed multiple calcifications with some developing calcifications in the upper outer right breast at 9:00 middle position. These appeared to be new and stereotactic core biopsy was recommended again. She does not feel any lumps masses or nodules of concern in either breast. She was due for a left breast mammogram and this was performed today. Results are pending. She has bilateral macromastia resulting in bilateral shoulder notching, chronic back pain, anxiety secondary to this is the fourth stereotactic core biopsy in her right breast and not knowing if cancer will develop. She would like to have a bilateral reduction mammoplasty. She is even considering mastectomies. Caffeine: energy drink/day nicotine: none chocolate: occasional Family history: Negative Hormonal History: menarche: 13 , M1, breast fed: yes, age at first : 24 periods regular; LMP: 1 month ago BCP: < 1 year hormone: none Surgical History: gallbladder Medical history: none Social history: Nicotine: Negative Alcohol: Occasional Drugs: Negative - Constitutional Constitutional: Denies chills, Denies fever - EENT Eyes: denies blurred vision, denies pain Ears: deny: decreased hearing, tinnitus Ears, nose, mouth and throat: Denies headache, Denies sore throat - Breasts Breasts: bilateral: as per HPI - Cardiovascular Cardiovascular: Denies chest pain, Denies shortness of breath - Respiratory Respiratory: Denies cough - Gastrointestinal Gastrointestinal: Denies abdominal pain, Denies diarrhea, Denies nausea, Denies vomiting - Genitourinary (Female) Genitourinary: Denies dysuria, Denies hematuria - Menstruation Menstruation: Reports period normal - Musculoskeletal Musculoskeletal: Denies myalgias - Integumentary Integumentary: Denies pruritus, Denies rash - Neurological Neurological: Denies numbness, Denies weakness - Psychiatric Psychiatric: Reports anxiety, Denies depression - Endocrine Endocrine: Denies fatigue, Denies weight change - Hematologic/Lymphatic Comment: none - Allergic/Immunologic Allergic/Immunologic: Reports as per HPI Objective - Vital Signs Vital signs: Vital Signs Temp 98.3 F 01/13/24 07:36 Pulse 98 01/13/24 07:36 Resp 16 01/13/24 07:36 BP 106/76 01/13/24 07:36 Pulse Ox FiO2 Intake & Output 01/12/24 01/13/24 01/13/24 18:59 06:59 18:59 Weight 117.934 kg - Constitutional General appearance: Present: cooperative - EENT Eyes: Present: edentulous ENT: Present: hearing grossly normal - Neck Neck: Present: normal ROM - Respiratory Respiratory: bilateral: CTA - Cardiovascular Rhythm: regular Heart sounds: normal: S1, S2 - Gastrointestinal General gastrointestinal: Present: soft - Integumentary Integumentary: Present: normal turgor - Musculoskeletal Musculoskeletal: Present: gait normal - Psychiatric Psychiatric: Present: A&O x's 3, appropriate affect, intact judgment & insight - Additional findings Additional findings: BRA: 44F inspection: bilateral grade 3 ptosis; bilateral shoulder notching palpation: right breast: Multi-positional exam fibrocystic changes no dominant masses or nodules of concern Right axilla: No adenopathy of concern Left breast: Multiple positional exam no dominant masses or nodules of concern Left axilla: No adenopathy of concern Bilateral shoulder notching Breast hang close to her waist secondary to the pendulous nature when she stands or sits up Assessment and Plan Assessment: Impression: Impression: Macromastia Shoulder notching Back pain Fibrocystic breast changes [place] [id number] benign, however secondary to the large area of microcalcifications repeat mammogram was recommended and done on 06-13-23; BIRAD 4 stero biopsy recommended Plan: Bilateral symptomatic macromastia Bilateral shoulder notching Chronic back pain Multiple stereotactic core biopsies, new radiographic abnormality right breast resulting in stereotactic core biopsy Risk and benefits of stereotactic core biopsy are discussed with the patient. Risk include but are not limited to bleeding, infection, reaction to the anesthetic. She understands and wishes to proceed. Additionally she understands if the results are nonconcordant or the lesion cannot be identified that we would either terminate the procedure further tissue acquisition may be necessary. CC: Dr. Christianson
[2024-01-13 09:58] VITALS: BP 126/85; PULSE 81; TEMP 98.1
--- NOTE | 2024-01-13 15:17 | P.PCN ---
Date of Procedure: 01/13/24 Preoperative Diagnosis: Abnormal right breast mammogram Postoperative Diagnosis: Same Procedure(s) Performed: Right breast stereotactic core biopsy Anesthesia: local Surgeon: Chelsi Robbins Pathology: other (Breast tissue/radiograph of specimen reveals microcalcifications of concern) Condition: stable Disposition: same day Indications for Procedure: Microcalcifications of concern right breast Operative Findings: Radiograph of specimen reveals microcalcifications of concern Description of Procedure: The patient was noted to have microcalcifications of concern in the right breast in the lateral, mid breast. The mammograms were personally reviewed with Dr. Webster from radial oncology. On physical examination no discrete lumps masses or nodules of concern were identified. She was recommended to undergo a stereotactic core biopsy. Risk and benefits of the procedure were discussed with the patient. She understood and wished to proceed. The patient was taken to the stereotactic core biopsy room. She was positioned in the upright chair. A county coroner film was obtained. A lateral to medial approach was utilized. The area of concern was identified. The area was targeted. The breast was prepped using chlorhexidine. 20 cc of 1% lidocaine were used to anesthetize the area of concern. A 9 gauge vacuum-assisted core rotating biopsy needle was driven to the correct coordinates. A prefire film was obtained and the needle was noted to be in the correct location. The needle was fired. Posterior film was obtained and the needle was noted to be in the correct location. 12 core biopsy specimens were obtained. Radiograph of the specimens revealed microcalcifications of concern. A secure ese Top-Hat clip was placed. Post procedure radiograph revealed the clip to be in the correct location. The patient tolerated the procedure in stable condition. The patient will follow-up with Dr. Cordoba next week. The specimen was sent to pathology for evaluation.
--- NOTE | 2024-01-16 07:36 | MM ---
Date of Procedure: 01/13/24 Preoperative Diagnosis: Abnormal right breast mammogram Postoperative Diagnosis: Same Procedure(s) Performed: Right breast stereotactic core biopsy Anesthesia: local Surgeon: Chelsi Robbins Pathology: other (Breast tissue/radiograph of specimen reveals microcalcifications of concern) Condition: stable Disposition: same day Indications for Procedure: Microcalcifications of concern right breast Operative Findings: Radiograph of specimen reveals microcalcifications of concern Description of Procedure: The patient was noted to have microcalcifications of concern in the right breast in the lateral, mid breast. The mammograms were personally reviewed with Dr. Webster from [facility] oncology. On physical examination no discrete lumps masses or nodules of concern were identified. She was recommended to undergo a stereotactic core biopsy. Risk and benefits of the procedure were discussed with the patient. She understood and wished to proceed. The patient was taken to the stereotactic core biopsy room. She was positioned in the upright chair. A inoculator film was obtained. A lateral to medial approach was utilized. The area of concern was identified. The area was targeted. The breast was prepped using chlorhexidine. 20 cc of 1% lidocaine were used to anesthetize the area of concern. A 9 gauge vacuum-assisted core rotating biopsy needle was driven to the correct coordinates. A prefire film was obtained and the needle was noted to be in the correct location. The needle was fired. Posterior film was obtained and the needle was noted to be in the correct location. 12 core biopsy specimens were obtained. Radiograph of the specimens revealed microcalcifications of concern. A secure ese Top-Hat clip was placed. Post procedure radiograph revealed the clip to be in the correct location. The patient tolerated the procedure in stable condition. The patient will follow-up with Dr. Cordoba next week. The specimen was sent to pathology for evaluation. [facility] HOSPITALJeannette
== END ==
LOC: RADMAMWWP 07:28
PROVIDERS: ATTEND Surgery
DX: N60.11 Diffuse cystic mastopathy of right breast (principal)
CPT/HCPCS: 88305; 77065; 19081; A4648; G0279; J2001; 77061

== ENCOUNTER → 2024-01-20 | Outpatient (CLI) | payer OTHER ==
--- NOTE | 2024-01-20 09:59 | P.PN ---
Subjective Progress Note Date: 01/20/24 Principal diagnosis: fibrocystic breast changes abnormal right breast mammogram Fibrocystic breast changes Paige is a 44-year-old white female status post stero biopsy of an area of microcalcifications in the right breast on . Her pathology was benign. The area was approximately 5 cm and after review with radiology was recommended that a repeat mammogram be done in 3 months rather than 6 months. She has had 3 stereotactic core biopsies in the right breast all have been benign. The first 2 stereo biopsies were done at the same time in January 2021. The patient herself is not complaining of any new lumps masses or nodules of concern. Patient does have marked macromastia. She has back pain associated with this. She has shoulder notching associated with this. Would like to have reduction mammoplasty performed. Have reviewed in detail the patient's repeat right breast mammogram with Dr. Webster from radiology. At this time the calcifications do not appear to have changed. However to be cautious he has recommended repeating a mammogram of that side in 3 months with magnification views of that site. We have also discussed reduction mammoplasty. His recommendation is that we would wait until the additional films be done in 3 months to assure stability. Patient will have repeat right breast mammogram with magnification views of the area of concern in 3 months and an appointment at that time. right breast mammogram done on 06-13-23 BIRAD 4 stero biopsy recommended Stereotactic core biopsy on 07-08-2023 of the right breast this was benign with fibrocystic changes She was recommended to have a repeat right breast mammogram in 6 months. That was repeated on 01-09-2024. This revealed multiple calcifications with some developing calcifications in the upper outer right breast at 9:00 middle position. These appeared to be new and stereotactic core biopsy was recommended again. She does not feel any lumps masses or nodules of concern in either breast. She was due for a left breast mammogram and this was performed today. Left breast mammogram on 01-13-24 BIRAD 2 She has bilateral macromastia resulting in bilateral shoulder notching, chronic back pain, anxiety secondary to this is the fourth stereotactic core biopsy in her right breast and not knowing if cancer will develop. She would like to have a bilateral reduction mammoplasty. She is even considering mastectomies. right breast stero biopsy on 01-13-24 benign breast with fibrocystic changes and intraluminal calcium oxalate crystals/benign concordant Bianka evaluation: 5-year 1.8% NCI lifetime risk 13.6% We have discussed any benefits from chemoprophylaxis but her risk is so low that we have not recommended it, patient and her early menopause. Caffeine: energy drink/day nicotine: none chocolate: occasional Family history: Negative Hormonal History: menarche: 13 , M1, breast fed: yes, age at first : 24 periods regular; LMP: 1 month ago BCP: < 1 year hormone: none Surgical History: gallbladder Medical history: none Social history: Nicotine: Negative Alcohol: Occasional Drugs: Negative - Constitutional Constitutional: Denies chills, Denies fever - EENT Eyes: denies blurred vision, denies pain Ears: deny: decreased hearing, tinnitus Ears, nose, mouth and throat: Denies headache, Denies sore throat - Breasts Breasts: bilateral: as per HPI - Cardiovascular Cardiovascular: Denies chest pain, Denies shortness of breath - Respiratory Respiratory: Denies cough - Gastrointestinal Gastrointestinal: Denies abdominal pain, Denies diarrhea, Denies nausea, Denies vomiting - Genitourinary (Female) Genitourinary: Denies dysuria, Denies hematuria - Menstruation Menstruation: Reports period normal - Musculoskeletal Musculoskeletal: Denies myalgias - Integumentary Integumentary: Denies pruritus, Denies rash - Neurological Neurological: Denies numbness, Denies weakness - Psychiatric Psychiatric: Reports anxiety, Denies depression - Endocrine Endocrine: Denies fatigue, Denies weight change - Hematologic/Lymphatic Comment: none - Allergic/Immunologic Allergic/Immunologic: Reports as per HPI Objective - Vital Signs Vital signs: Vital Signs Temp 98.1 F 01/20/24 09:39 Pulse 62 01/20/24 09:39 Resp 17 01/20/24 09:39 BP 131/80 01/20/24 09:39 Pulse Ox 100 01/20/24 09:39 FiO2 Intake & Output 01/19/24 01/20/24 01/20/24 18:59 06:59 18:59 Weight 115.666 kg - Constitutional General appearance: Present: cooperative - EENT Eyes: Present: EOMI ENT: Present: hearing grossly normal - Neck Neck: Present: normal ROM - Respiratory Respiratory: bilateral: CTA - Cardiovascular Rhythm: regular Heart sounds: normal: S1, S2 - Integumentary Integumentary: Present: normal turgor - Musculoskeletal Musculoskeletal: Present: gait normal - Psychiatric Psychiatric: Present: A&O x's 3, appropriate affect, intact judgment & insight - Additional findings Additional findings: Breast examination is limited to the biopsy site at this time Right breast biopsy site clean and dry No evidence of any hematoma or infection Assessment and Plan Assessment: Impression: Macromastia Shoulder notching Back pain Fibrocystic breast changes [place] [id number] benign, however secondary to the large area of microcalcifications repeat mammogram was recommended and done on 06-13-23; BIRAD 4 stero biopsy recommended done on 01-13-24 benign concordant Plan: right breast mammogram in 6 months appointment with plastic surgery consider breast reduction I have had a discussion with the patient and her that the findings are benign. There is no need for any further surgical intervention related to the pathology findings at this time. The patient would like to have a reduction mammoplasty performed and she is going to follow-up with plastic surgery. CC: Dr. Christianson
[2024-01-20 10:26] VITALS: BP 131/80; PULSE 62; RESP 17; TEMP 98.1
== END ==
LOC: WWCWWP 09:17
PROVIDERS: ATTEND Surgery
DX: R92.8 Other abnormal and inconclusive findings on diagnostic imaging of breast (principal); R92.0 Mammographic microcalcification found on diagnostic imaging of breast; N62 Hypertrophy of breast; M54.9 Dorsalgia, unspecified; M54.50 Low back pain, unspecified; N60.11 Diffuse cystic mastopathy of right breast; N60.12 Diffuse cystic mastopathy of left breast; M89.8X1 Other specified disorders of bone, shoulder; F06.4 Anxiety disorder due to known physiological condition; G89.29 Other chronic pain; Z78.0 Asymptomatic menopausal state

== ENCOUNTER → 2024-07-16 | Outpatient (CLI) | payer OTHER ==
--- NOTE | 2024-07-16 14:15 | MM ---
Reason for Exam: Follow-up at short interval from prior study. Last mammogram was performed 1 year(s) and 7 month(s) ago. Patient History: Menarche at age 12. First Full-Term at age 24. Premenopausal. Patient has history of breast feeding. 01/13/2024, Benign MG stereo VAD BX RT on the right side. 07/08/2023, Benign MG stereo VAD BX RT on the right side. 12/24/2022, Benign MG stereo VAD BX RT on the right side. 02/12/2021, Benign Core Biopsy on the right side. 02/12/2021, Benign Core Biopsy on the right side. Risk Values: Bianka 5 year model risk: 1.8%. NCI Lifetime model risk: 13.6%. Prior Study Comparison: 06/13/2023 Right MG 3D diag mammo w/cad RT, [facility]. 01/09/2024 Right MG 3D diag mammo w/cad RT, [facility]. 01/13/2024 Left MG 3D diag mammo w/cad LT, [facility]. Tissue Density: Right: There are scattered areas of fibroglandular density. Findings: Analyzed By CAD. Focal subareolar density is unchanged. Associated regional punctate microcalcifications throughout this area is also unchanged. 3 microclips are noted near anteriorly in the breast. Chronic nodularity on the right. Microclip upper-outer quadrant right breast middle to posterior depth at the site of more recent biopsy. No significant change from prior exams. Overall Assessment: Benign, BI-RAD 2 Management: Screening Mammogram of both breasts in 6 months. Results were given to the patient verbally at the time of exam. Patient should continue monthly self-breast exams. A clinical breast exam by your physician is recommended on an annual basis. This exam should not preclude additional follow-up of suspicious palpable abnormalities. Note on Bianka scores and lifetime risk: 1. A Bianka score greater than 3% is considered moderate risk. If this is the case, consider specialist referral to assess eligibility for a risk reducing agent. 2. If overall lifetime risk for the development of breast cancer is 20% or higher, the patient may qualify for future screening with alternating mammogram and breast MRI. [facility], , 07/16/2024 2:12 PM. Electronically signed and approved by: Dick Rebolledo M.D. Radiologist
== END | disposition home or self-care (01) ==
LOC: RADMAMWWP 13:38
PROVIDERS: ATTEND Surgery
CPT/HCPCS: 77061; 77065

== ENCOUNTER → 2024-07-23 | Outpatient (CLI) | payer OTHER ==
[2024-07-23 11:53] VITALS: BP 144/82; PULSE 67; RESP 16; TEMP 98.3
--- NOTE | 2024-07-23 12:06 | P.PN ---
Subjective Progress Note Date: 07/23/24 Subjective fibrocystic breast changes abnormal right breast mammogram Fibrocystic breast changes Paige is a 44-year-old white female status post stero biopsy of an area of microcalcifications in the right breast on . Her pathology was benign. The area was approximately 5 cm and after review with radiology was recommended that a repeat mammogram be done in 3 months rather than 6 months. She has had 3 stereotactic core biopsies in the right breast all have been benign. The first 2 stereo biopsies were done at the same time in January 2021. The patient herself is not complaining of any new lumps masses or nodules of concern. Patient does have marked macromastia. She has back pain associated with this. She has shoulder notching associated with this. Would like to have reduction mammoplasty performed. Have reviewed in detail the patient's repeat right breast mammogram with Dr. Webster from radiology. At this time the calcifications do not appear to have changed. However to be cautious he has recommended repeating a mammogram of fredy t side in 3 months with magnification views of that site. We have also discussed reduction mammoplasty. His recommendation is that we would wait until the additional films be done in 3 months to assure stability. Patient will have repeat right breast mammogram with magnification views of the area of concern in 3 months and an appointment at that time. right breast mammogram done on 06-13-23 BIRAD 4 stero biopsy recommended Stereotactic core biopsy on 07-08-2023 of the right breast this was benign with fibrocystic changes She was recommended to have a repeat right breast mammogram in 6 months. That was repeated on 01-09-2024. This revealed multiple calcifications with some developing calcifications in the upper outer right breast at 9:00 middle position. These appeared to be new and stereotactic core biopsy was recommended again. She does not feel any lumps masses or nodules of concern in either breast. She was due for a left breast mammogram and this was performed today. Left b reast mammogram on 01-13-24 BIRAD 2 She has bilateral macromastia resulting in bilateral shoulder notching, chronic back pain, anxiety secondary to this is the fourth stereotactic core biopsy in her right breast and not knowing if cancer will develop. She would like to have a bilateral reduction mammoplasty. She is even considering mastectomies. right breast stero biopsy on 01-13-24 benign breast with fibrocystic changes and intraluminal calcium oxalate crystals/benign concordant repeat right breast mammogram on 07-16-24 RANDEE Medina Does not feel any new lumps masses or nodules of concern in either breast. However she has had 4 stereotactic core biopsies of the right breast and it is very difficult to examine her secondary to the large size of her breast and the changes in the breast. She has constant chronic back pain secondary to the size of her breast. She has had multiple episodes of fungal infection under the breast necessitating treatment with nystatin creams. Bianka evaluation: 5-year 1.8% NCI lifetime risk 13.6% We have discussed any benefits from chemoprophylaxis but her risk is so low that we have not recommended it, patient and her early menopause. Caffeine: energy drink/day nicotine: none chocolate: occasional Family history: Negative Hormonal History: menarche: 13 , M1, breast fed: yes, age at first : 24 periods regular; LMP: 1 month ago BCP: < 1 year hormone: none Surgical History: gallbladder Medical history: none Social history: Nicotine: Negative Alcohol: Occasional Drugs: Negative - Constitutional Constitutional: Denies chills, Denies fever - EENT Eyes: denies blurred vision, denies pain Ears: deny: decreased hearing, tinnitus Ears, nose, mouth and throat: Denies headache, Denies sore throat - Breasts Breasts: bilateral: as per HPI - Cardiovascular Cardiovascular: Denies chest pain, Denies shortness of breath - Respiratory Respiratory: Denies cough - Gastrointestinal Gastrointestinal: Denies abdominal pain, Denies diarrhea, Denies nausea, Denies vomiting - Genitourinary (Female) Genitourinary: Denies dysuria, Denies hematuria - Menstruation Menstruation: Reports period normal - Musculoskeletal Musculoskeletal: Denies myalgias - Integumentary Integumentary: Denies pruritus, Denies rash - Neurological Neurological: Denies numbness, Denies weakness - Psychiatric Psychiatric: Reports anxiety, Denies depression - Endocrine Endocrine: Denies fatigue, Denies weight change - Hematologic/Lymphatic Comment: none - Allergic/Immunologic Allergic/Immunologic: Reports as per HPI Objective - Vital Signs Vital signs: Vital Signs Temp 98.3 F 07/23/24 11:51 Pulse 67 07/23/24 11:51 Resp 16 07/23/24 11:51 BP 144/82 07/23/24 11:51 Pulse Ox 100 07/23/24 11:51 FiO2 Intake & Output 07/22/24 07/23/24 07/23/24 18:59 06:59 18:59 Weight 113.398 kg - Constitutional General appearance: Present: cooperative - EENT Eyes: Present: EOMI ENT: Present: hearing grossly normal - Neck Neck: Present: normal ROM - Respiratory Respiratory: bilateral: CTA - Cardiovascular Rhythm: regular Heart sounds: normal: S1, S2 - Integumentary Integumentary: Present: normal turgor - Musculoskeletal Musculoskeletal: Present: gait normal - Psychiatric Psychiatric: Present: A&O x's 3, appropriate affect, intact judgment & insight - Additional findings Additional findings: Breat Exam: BRA: 38H Bilateral grade 3 ptosis, shoulder notching bilateral Palpation: Right breast: Multi positional exam fibrocystic changes, no discrete dominant masses or nodules of concern Right axilla: No adenopathy of concern Left breast: Multi positional exam fibrocystic changes, no discrete dominant m asses or nodules of concern Left axilla: No adenopathy of concern Marked bilateral macromastia Assessment and Plan Assessment: Impression: Macromastia Shoulder notching Back pain Fibrocystic breast changes Stereotactic core biopsy from [address]00 benign, however secondary to the large area of microcalcifications repeat mammogram was recommended and done on ; BIRAD 4 stero biopsy recommended done on 01-13-24 benign concordant right breat mammogram on 07-16-24 BIRAD 2 Plan: bilateral mammogram in 6 months Reduction mammoplasty, and at this time the patient would like to have this performed. This for cancer surveillance secondary to the large size of her breast. Additionally she has chronic back pain, difficulty with fungal infections under her breast, and shoulder notching. CC: Dr. Garcia
== END ==
LOC: WWCWWP 11:15
PROVIDERS: ATTEND Surgery

== ENCOUNTER → 2025-01-14 | Outpatient (CLI) | payer OTHER ==
--- NOTE | 2025-01-14 11:18 | MM ---
Reason for Exam: Screening (asymptomatic). Last mammogram was performed 2 year(s) and 1 month(s) ago. Patient History: Menarche at age 12. First Full-Term at age 24. Premenopausal. Patient has history of breast feeding. 01/13/2024, Benign MG stereo VAD BX RT on the right side. 07/08/2023, Benign MG stereo VAD BX RT on the right side. 12/24/2022, Benign MG stereo VAD BX RT on the right side. 02/12/2021, Benign Core Biopsy on the right side. 02/12/2021, Benign Core Biopsy on the right side. Risk Values: Bianka 5 year model risk: 1.9%. NCI Lifetime model risk: 13.4%. Prior Study Comparison: 01/09/2024 Right MG 3D diag mammo w/cad RT, [facility]. 01/13/2024 Left MG 3D diag mammo w/cad LT, [facility]. 07/16/2024 Right MG 3D diag mammo w/cad RT, [facility]. Tissue Density: There are scattered areas of fibroglandular density. Findings: Analyzed By CAD. There is no suspicious group of microcalcifications or new suspicious mass in either breast. Overall Assessment: Benign, BI-RAD 2 Management: Screening Mammogram of both breasts in 1 year. . Patient should continue monthly self-breast exams. A clinical breast exam by your physician is recommended on an annual basis. This exam should not preclude additional follow-up of suspicious palpable abnormalities. Note on Bianka scores and lifetime risk: 1. A Bianka score greater than 3% is considered moderate risk. If this is the case, consider specialist referral to assess eligibility for a risk reducing agent. 2. If overall lifetime risk for the development of breast cancer is 20% or higher, the patient may qualify for future screening with alternating mammogram and breast MRI. [facility], , 01/14/2025 11:14 AM. Electronically signed and approved by: Hardik Amador M.D. Radiologis
== END | disposition home or self-care (01) ==
LOC: RADMAMWWP 09:25
PROVIDERS: ATTEND Surgery
DX: Z12.31 Encounter for screening mammogram for malignant neoplasm of breast (principal); R92.323 Mammographic fibroglandular density, bilateral breasts
CPT/HCPCS: 77063; 77067

== ENCOUNTER → 2025-01-18 | Outpatient (CLI) | payer OTHER ==
[2025-01-18 11:31] VITALS: BP 137/87; PULSE 85; RESP 16; TEMP 98.3
--- NOTE | 2025-01-18 15:26 | P.PN ---
Subjective Progress Note Date: 01/18/25 Principal diagnosis: Macromastia/back pain/recurrent fungal infection/difficulty examining breast 01-18-25 Subjective fibrocystic breast changes abnormal right breast mammogram Fibrocystic breast changes Paige is a 44-year-old white female status post stero biopsy of an area of microcalcifications in the right breast on . Her pathology was benign. The area was approximately 5 cm and after review with radiology was recommended that a repeat mammogram be done in 3 months rather than 6 months. She has had 3 stereotactic core biopsies in the right breast all have been benign. The first 2 stereo biopsies were done at the same time in January 2021. The patient herself is not complaining of any new lumps masses or nodules of concern. Patient does have marked macromastia. She has back pain associated with this. She has shoulder notching associated with this. Would like to have reduction mammoplasty performed. Have reviewed in detail the patient's repeat right breast mammogram with Dr. Webster from radiology. At this time the calcifications do not appear to have changed. However to be cautious he has recommended repeating a mammogram of that side in 3 months with magnification views of that site. We have also discussed reduction mammoplasty. His recommendation is that we would wait until the additional films be done in 3 months to assure stability. Patient will have repeat right breast mammogram with magnification views of the area of concern in 3 months and an appointment at that time. right breast mammogram done on 06-13-23 BIRAD 4 stero biopsy recommended Stereotactic core biopsy on 07-08-2023 of the right breast this was benign with fibrocystic changes She was recommended to have a repeat right breast mammogram in 6 months. That was repeated on 01-09-2024. This revealed multiple calcifications with some developing calcifications in the upper outer right breast at 9:00 middle position. These appeared to be new and stereotactic core biopsy was recommended again. She does not feel any lumps masses or nodules of concern in either breast. She was due for a left breast mammogram and this was performed today. Left breast mammogram on 01-13-24 BIRAD 2 She has bilateral macromastia resulting in bilateral shoulder notching, chronic back pain, anxiety secondary to this is the fourth stereotactic core biopsy in her right breast and not knowing if cancer will develop. She would like to have a bilateral reduction mammoplasty. She is even considering mastectomies. right breast stero biopsy on 01-13-24 benign breast with fibrocystic changes and intraluminal calcium oxalate crystals/benign concordant repeat right breast mammogram on 07-16-24 BIRAD 2 bilateral mammogram on 01-14-25 BIRAD 2 Does not feel any new lumps masses or nodules of concern in either breast. However she has had 4 stereotactic core biopsies of the right breast and it is very difficult to examine her secondary to the large size of her breast and the changes in the breast. She has constant chronic back pain secondary to the size of her breast. She has had multiple episodes of fungal infection under the breast necessitating treatment with nystatin creams. Bianka evaluation: 5-year 1.8% NCI lifetime risk 13.6% We have discussed any benefits from chemoprophylaxis but her risk is so low that we have not recommended it, patient and her early menopause. Caffeine: energy drink/day nicotine: none chocolate: occasional Family history: Negative Hormonal History: menarche: 13 , M1, breast fed: yes, age at first : 24 periods regular; LMP: 1 month ago BCP: < 1 year hormone: none Surgical History: gallbladder Medical history: none Social history: Nicotine: Negative Alcohol: Occasional Drugs: Negative - Constitutional Constitutional: Denies chills, Denies fever - EENT Eyes: denies blurred vision, denies pain Ears: deny: decreased hearing, tinnitus Ears, nose, mouth and throat: Denies headache, Denies sore throat - Breasts Breasts: bilateral: as per HPI - Cardiovascular Cardiovascular: Denies chest pain, Denies shortness of breath - Respiratory Respiratory: Denies cough - Gastrointestinal Gastrointestinal: Denies abdominal pain, Denies diarrhea, Denies nausea, Denies vomiting - Genitourinary (Female) Genitourinary: Denies dysuria, Denies hematuria - Menstruation Menstruation: Reports period normal - Musculoskeletal Musculoskeletal: Denies myalgias - Integumentary Integumentary: Denies pruritus, Denies rash - Neurological Neurological: Denies numbness, Denies weakness - Psychiatric Psychiatric: Reports anxiety, Denies depression - Endocrine Endocrine: Denies fatigue, Denies weight change - Hematologic/Lymphatic Comment: none - Allergic/Immunologic Allergic/Immunologic: Reports as per HPI Objective - Vital Signs Vital signs: Vital Signs Temp 98.3 F 01/18/25 11:29 Pulse 85 01/18/25 11:29 Resp 16 01/18/25 11:29 BP 137/87 01/18/25 11:29 Pulse Ox 98 01/18/25 11:29 FiO2 Intake & Output 01/17/25 01/18/25 01/18/25 18:59 06:59 18:59 Weight 117.934 kg - Constitutional General appearance: Present: cooperative - EENT Eyes: Present: EOMI ENT: Present: hearing grossly normal - Neck Neck: Present: normal ROM - Respiratory Respiratory: bilateral: CTA - Cardiovascular Rhythm: regular Heart sounds: normal: S1, S2 - Integumentary Integumentary: Present: normal turgor - Musculoskeletal Musculoskeletal: Present: gait normal - Psychiatric Psychiatric: Present: A&O x's 3, appropriate affect, intact judgment & insight - Additional findings Additional findings: Breat Exam: BRA: 38H Bilateral grade 3 ptosis, shoulder notching bilateral Palpation: Right breast: Multi positional exam fibrocystic changes, no discrete dominant masses or nodules of concern Right axilla: No adenopathy of concern Left breast: Multi positional exam fibrocystic changes, no discrete dominant masses or nodules of concern Left axilla: No adenopathy of concern Marked bilateral macromastia Assessment and Plan Assessment: Impression: Macromastia Shoulder notching Back pain Fibrocystic breast changes Stereotactic [place] [id number] benign, however secondary to the large area of microcalcifications repeat mammogram was recommended and done on 06-13-23; BIRAD 4 stero biopsy recommended done on 01-13-24 benign concordant right breast mammogram on 07-16-24 BIRAD 2 bilateral mammogram 01-14-25 BIRAD 2 Plan: bilateral mammogram in December 2025 Reduction mammoplasty, and at this time the patient would like to have this performed. This for cancer surveillance secondary to the large size of her breast. Additionally she has chronic back pain, difficulty with fungal infecti ons under her breast, and shoulder notching. CC: Dr. Garcia
== END ==
LOC: WWCWWP 11:10
PROVIDERS: ATTEND Surgery
DX: Z12.31 Encounter for screening mammogram for malignant neoplasm of breast (principal); N62 Hypertrophy of breast; M54.9 Dorsalgia, unspecified; N60.19 Diffuse cystic mastopathy of unspecified breast